=== PATIENT | female | born 1975 | race Caucasian/White ===

== ENCOUNTER → 2023-09-01 08:36 | Outpatient (REF) | payer BC, SELFPAY | LOC: WDC 08:36 | PROVIDERS: ATTENDING PHYSICIAN Family Medicine | DX: Z12.31 Encounter for screening mammogram for malignant neoplasm of breast (principal) | CPT/HCPCS: 77063; 77067 ==

== ENCOUNTER → 2024-02-13 08:26 | Outpatient (REF) | payer BC, SELFPAY | LOC: RAD 08:26 | PROVIDERS: ATTENDING PHYSICIAN Family Medicine | DX: M81.0 Age-related osteoporosis without current pathological fracture (principal); Z86.39 Personal history of other endocrine, nutritional and metabolic disease | CPT/HCPCS: 77080 ==

== ENCOUNTER → 2024-10-22 17:27 | Outpatient (REF) | payer BC, SELFPAY | LOC: WDC 17:27 | PROVIDERS: ATTENDING PHYSICIAN Family Medicine | DX: Z12.31 Encounter for screening mammogram for malignant neoplasm of breast (principal) | CPT/HCPCS: 77063; 77067 ==